=== PATIENT | male | born 2000 | race Caucasian/White ===

== ENCOUNTER 2024-06-04 16:12 | Emergency (ER) | payer OTHER, BC, SELFPAY ==
--- NOTE | ~2024-06-04 | XR_ITS ---
3 VIEWS NASAL BONES Ordering provider: Anastasia Jonas NP History: . injury . Comparison: None. FINDINGS: No acute fracture. Mild right nasal septum deviation. Soft tissues are normal. IMPRESSION: NO NASAL BONE FRACTURE. Reviewed, dictated and finalized at location A. IMPRESSION: NO NASAL BONE FRACTURE.
[2024-06-04 16:22] VITALS: BP 143/67; PULSE 88; RESP 20; TEMP 37.2; O2SAT 100
--- NOTE | 2024-06-04 16:30 | ED.GENADULT ---
HPI - General Adult General Chief complaint: Head Injury Stated complaint: WC hit head/nose at work Time Seen by Provider: 06/04/24 16:30 Source: patient Mode of arrival: ambulatory Limitations: no limitations History of Present Illness HPI narrative: 24-year-old male presents with complaint of pain and swelling to nose. Also reports he had a headache earlier but has since resolved. Patient works for [email or web address]. 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 States he also hit his forehead. Denies LOC. States he had headache and some light sensitivity. Has not taking any [id number]-[id number] medication to treat pain but headache has resolved. Denies nausea vomiting. Ambulatory with steady gait. Patient states he also had a nose bleed but has resolved. All systems reviewed and negative except as noted above. Related Data Allergies Allergy/AdvReac Type Severity Reaction Status Date / Time No Known Allergies Allergy Verified 06/04/24 16:29 Review of Systems Review of Systems: CONSTITUTIONAL: Denies fever, chills, or sweats. EYES: Denies visual changes, redness, or discharge. ENT: Denies rhinorrhea, congestion, sore throat, or otalgia. Reports pain and swelling to nose. CARDIOVASCULAR: Denies chest pain, palpitations, or edema. RESPIRATORY: Denies cough or dyspnea. GASTROINTESTINAL: Denies abdominal pain, nausea, vomiting, or diarrhea. GENITOURINARY: Denies dysuria or hematuria. SKIN: Denies rash or itching. MUSCULOSKELETAL: Denies back pain, joint pain, or myalgia. NEUROLOGIC: Reports headache. Denies numbness, or weakness. PSYCHIATRIC: Denies anxiety or depression. All other systems reviewed are negative, except as documented in HPI. PMFSH Comments At time of signature, agree with nursing past medical, surgical, social and family history. There is no relevant family history pertinent to the presenting complaint. Exam Narrative: GENERAL: This is a well-nourished, well-developed patient, in no apparent distress. HEAD: normocephalic, atraumatic. EYES: PERRL. Sclera clear/white. Vision is grossly intact. extraocular motions intact EARS: External ears normal, auditory canals clear and without drainage, TMs normal without perforation. Hearing grossly intact. NOSE: mild swelling to external nose with tenderness on palpation. with no obvious nasal discharge, nares without redness, no rhinorrhea. NECK: Neck supple, non-tender without lymphadenopathy, masses or thyromegaly. CARDIOVASCULAR: Regular rate and rhythm without murmurs, gallops, or rubs. RESPIRATORY: Clear to auscultation. Breath sounds equal bilaterally. No wheezes, rales, or rhonchi. GASTROINTESTINAL: Abdomen soft, non-tender, nondistended. Bowel sounds are active. No hepato-splenomegaly, or palpable masses. No guarding. SKIN: warm, Dry, intact with no suspicious lesions or rash, good texture and turgor. NEURO: awake, alert, and oriented to person, place and time. There were no obvious focal neurologic abnormalities. 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 EXTREMITIES: No joint tenderness, effusion, or edema noted. Course Course Level of Care: Express Care Visit Vital Signs Vital signs: Vital Signs Temperature 37.2 C 06/04/24 16:22 Pulse Rate 88 06/04/24 16:22 Respiratory Rate 20 06/04/24 16:22 Blood Pressure 143/67 H 06/04/24 16:22 Pulse Oximetry 100 06/04/24 16:22 Oxygen Delivery Room Air 06/04/24 16:22 Temperature 37.2 C 06/04/24 16:22 Pulse Rate 88 06/04/24 16:22 Respiratory Rate 20 06/04/24 16:22 Blood Pressure 143/67 H 06/04/24 16:22 Pulse Oximetry 100 06/04/24 16:22 Oxygen Delivery Room Air 06/04/24 16:22 Reviewed Medical Decision Making MDM Narrative Medical decision making narrative: discussed x-ray results with patient. No nasal bone fracture. Discussed concussion symptoms recommend patient monitor his symptoms. If he
== END 2024-06-04 17:28 | disposition home or self-care (01) ==
PROVIDERS: Emergency Provider Nurse Practitioner Family; PCP Internal Medicine
DX: S00.33XA Contusion of nose, initial encounter (principal); W01.0XXA Fall on same level from slipping, tripping and stumbling without subsequent striking against object, initial encounter; Y92.812 Truck as the place of occurrence of the external cause; Y99.0 Civilian activity done for income or pay
CPT/HCPCS: 70160; 99203; G0463